=== PATIENT | female | born 1980 | race Caucasian/White ===

== ENCOUNTER → 2017-08-03 | Outpatient (CLI) | payer MEDICAID, OTHER ==
[2017-08-03 17:00] LABS: INR 1.08; PROTHROMBIN TIME 14.2 SECONDS (12.4-14.5)
[2017-08-03 19:03] LABS: PARTIAL THROMBOPLASTIN TIME 43.2 SECONDS (26.8-37.9)
[2017-08-04 12:37] LABS: ALPHA FETOPROTEIN TUMOR QUANT 1.9 NG/ML (<8.1)
[2017-08-05 09:45] LABS: HEPATITIS B SURFACE ANTIBODY NEGATIVE (POSITIVE)
[2017-08-06 00:08] LABS: ANTI-SMOOTH MUSCLE ANTIBODY 10 Units (0-19)
[2017-08-06 00:08] LABS: ANTI-MITOCHONDRIAL ANTIBODY 2.8 Units (0.0-20.0); ANTINUCLEAR ANTIBODIES DIRECT Negative (Negative); HEPATITIS A IgG TOTAL Negative (Negative); LIVER-KIDNEY MICROSOMAL ABY 0.7 Units (0.0-20.0)
== END ==
LOC: M LAB 15:47
DX: R19.7 Diarrhea, unspecified (principal)
CPT/HCPCS: 86706

== ENCOUNTER → 2017-08-21 | Day surgery (SDC) | payer MEDICAID ==
[~2017-08-21] MED LIST: LIDOCAINE 2% INJ 100 MG/5 ML SDV (FOR ANES.) As Ordered; PHENYLephrine HCL 500 MCG/5 ML (100MCG/ML) SYRINGE (J2370) As Ordered; PROPOFOL 200 MG/20 ML VIAL As Ordered; PROPOFOL 500 MG/50 ML VIAL As Ordered; fentaNYL 100 MCG/2 ML INJECTION (J3010) As Ordered
[2017-08-21] MEDS: NS 1,000 ML IV (11:30)
== END | disposition home or self-care (01) ==
LOC: M OPP 11:07
DX: K64.8 Other hemorrhoids (principal); D12.7 Benign neoplasm of rectosigmoid junction; K63.5 Polyp of colon; K92.1 Melena; R19.4 Change in bowel habit; K29.70 Gastritis, unspecified, without bleeding; R10.13 Epigastric pain; K21.9 Gastro-esophageal reflux disease without esophagitis; K44.9 Diaphragmatic hernia without obstruction or gangrene; F32.9 Major depressive disorder, single episode, unspecified; F17.210 Nicotine dependence, cigarettes, uncomplicated; Z79.82 Long term (current) use of aspirin; Z79.899 Other long term (current) drug therapy
CPT/HCPCS: 45385

== ENCOUNTER 2019-02-16 06:04 | Emergency (ER) | payer OTHER ==
[~2019-02-16] VITALS: Ht 170.2 cm; Wt 88.6 kg
[~2019-02-16 06:04] MED LIST changes: +GAS-80CH PO; +IBUP200C25 PO; -LIDOCAINE 2% INJ 100 MG/5 ML SDV (FOR ANES.) As Ordered; +MULT1TAB18 PO; +PANT40TA3 PO; -PHENYLephrine HCL 500 MCG/5 ML (100MCG/ML) SYRINGE (J2370) As Ordered; -PROPOFOL 200 MG/20 ML VIAL As Ordered; -PROPOFOL 500 MG/50 ML VIAL As Ordered; -fentaNYL 100 MCG/2 ML INJECTION (J3010) As Ordered
[2019-02-16] MEDS ORDERED: PENI1TAB17 PO (06:08)
[2019-02-16] MEDS ORDERED: AMPICILLIN SOD/SULBACTAM SOD 3 GM in D5W MINI-BAG PLUS 100 ML IV ONE (06:30)
[2019-02-16] MEDS ORDERED: NS 1,000 ML IV ONE (06:30)
[2019-02-16] MEDS ORDERED: MORPHINE 4 MG/ML 1ML VIAL/SYRINGE (J2270) IV ONE (06:30)
[2019-02-16 06:51] LABS: BASO % 0.3 % (0.0-1.0); EOS # 0.1 10^3/uL (0.0-0.5); EOS % 0.7 % (0.0-3.0); HEMATOCRIT 38.9 % (36.0-47.0); HEMOGLOBIN 13.2 g/dl (12.0-15.5); LYMPH # 1.4 10^3/uL (1.5-5.0); LYMPH % 14.5 % (24.0-44.0); MEAN CORPUSCULAR HEMOGLOBIN 30.3 pg (27.0-33.0); MEAN CORPUSCULAR HGB CONC 33.9 g/dl (32.0-36.5); MEAN CORPUSCULAR VOLUME 89.2 fl (80.0-96.0); MONO # 0.7 10^3/uL (0.0-0.8); MONO % 7.4 % (0.0-5.0); NEUTROPHILS # 7.3 10^3/uL (1.5-8.5); NEUTROPHILS % 76.8 % (36.0-66.0); PLATELET COUNT, AUTOMATED 301 10^3/uL (150-450); RED BLOOD COUNT 4.36 10^6/uL (4.00-5.40); WHITE BLOOD COUNT 9.5 10^3/uL (4.0-10.0)
[2019-02-16] MEDS ORDERED: ISOVUE-370 76% 100ML VIAL (Q9967) As Ordered ONE (07:05)
[2019-02-16 07:13] LABS: BLOOD UREA NITROGEN 6 MG/DL (7-18); CALCIUM LEVEL 8.8 MG/DL (8.5-10.1); CARBON DIOXIDE LEVEL 26 MEQ/L (21-32); CHLORIDE LEVEL 107 MEQ/L (98-107); CREATININE FOR GFR 0.48 MG/DL (0.55-1.30); GLOMERULAR FILTRATION RATE > 60.0 (>60); GLUCOSE, FASTING 100 MG/DL (70-100); POTASSIUM SERUM 4.3 MEQ/L (3.5-5.1); SODIUM LEVEL 140 MEQ/L (136-145)
[2019-02-16 07:18] LABS: HCG, SERUM QUALITATIVE NEGATIVE (NEGATIVE)
--- NOTE | 2019-02-16 07:50 | REPVR ---
PROCEDURE INFORMATION: Exam: CT Neck With Contrast Exam date and time: 02/16/2019 7:27 AM Age: 38 years old Clinical history: Mass, lump, or swelling in neck; Additional info: Right lower molar infection ? abscess TECHNIQUE: Imaging protocol: Computed tomography images of the neck with intravenous contrast. Radiation optimization: All CT scans at this facility use at least one of these dose optimization techniques: automated exposure control; mA and/or kV adjustment per patient size (includes targeted exams where dose is matched to clinical indication); or iterative reconstruction. Contrast material: ISOVUE 370; Contrast volume: 75 ml; Contrast route: IV; COMPARISON: No relevant prior studies available. FINDINGS: Nasopharynx: Unremarkable. Oropharynx: Unremarkable. No significant tonsillar enlargement. Hypopharynx: Unremarkable Larynx: Unremarkable. Normal epiglottis. Retropharyngeal space: Unremarkable. Submandibular/Parotid glands: Normal. Glands are normal in size. Thyroid: Normal. No enlarged or calcified nodules. Lymph nodes: Multiple prominent level I and 2 lymph nodes, more prominent on the right are seen measuring up to 1.5 cm. Trachea: Visualized trachea is unremarkable. Lungs: Unremarkable as visualized. Dental: There is periapical lucency at the tip of right second maxillary molar tooth. Bones/joints: Unremarkable. No acute fracture. Soft tissues: There is significant right cheek soft tissue swelling and subcutaneous edema. There is significant streak artifacts from dental fillings limiting the evaluation. IMPRESSION: 1. Periapical lucency at the tip of right second maxillary molar tooth suggestive of periodontal/pulpal disease. 2. Significant soft tissue swelling and subcutaneous edema in the right cheek overlying the right mandible and maxilla but without obvious move collection to suggest an abscess however evaluation is limited by streak artifacts from dental fillings. 3. Bilateral level I and 2 cervical adenopathy, more prominent on the right likely reactive. Followup is suggested to document resolution. Electronically signed by: Ye Helton On 02/16/2019 07:50:27 AM
[2019-02-16] MEDS ORDERED: IBUP-1022 PO (08:04)
[2019-02-16] MEDS ORDERED: AUGM875T28 PO (08:04)
[2019-02-16 08:11] VITALS: BP 139/67
== END 2019-02-16 08:23 | disposition home or self-care (01) ==
LOC: M ED 06:04
DX: K04.7 Periapical abscess without sinus (principal); L03.211 Cellulitis of face; R59.0 Localized enlarged lymph nodes
CPT/HCPCS: 70491; 80048; 84703; 85025; 87040; 96374; 96375; 99284; J2270; Q9967

== ENCOUNTER → 2021-04-05 | Outpatient (REF) ==
[~2021-04-05] MED LIST changes: +AUGM875T28 PO; +IBUP-1022 PO; +PANT40TA29 PO; -PANT40TA3 PO; +PENI1TAB17 PO
== END ==
LOC: M LABSMTC 09:20
PROVIDERS: ATTEND Pediatrics
DX: Z20.822 Contact with and (suspected) exposure to COVID-19 (principal)

== ENCOUNTER 2021-06-19 14:51 | Emergency (ER) | payer OTHER ==
[~2021-06-19] VITALS: Ht 170.2 cm; Wt 86.4 kg
[2021-06-19 14:51] VITALS: BP 169/79
[2021-06-19] MEDS ORDERED: ACET-683 PO (15:00)
[2021-06-19 19:54] LABS: BASO % 0.5 % (0.0-1.0); EOS # 0.2 10^3/uL (0.0-0.5); EOS % 2.6 % (0.0-3.0); HEMATOCRIT 38.9 % (36.0-47.0); HEMOGLOBIN 13.4 g/dl (12.0-15.5); LYMPH # 3.3 10^3/uL (1.5-5.0); LYMPH % 40.3 % (24.0-44.0); MEAN CORPUSCULAR HEMOGLOBIN 31.6 pg (27.0-33.0); MEAN CORPUSCULAR HGB CONC 34.4 g/dl (32.0-36.5); MEAN CORPUSCULAR VOLUME 91.7 fl (80.0-96.0); MONO # 0.6 10^3/uL (0.0-0.8); MONO % 7.7 % (2.0-8.0); NEUTROPHILS % 48.8 % (36.0-66.0); PLATELET COUNT, AUTOMATED 285 10^3/uL (150-450); RED BLOOD COUNT 4.24 10^6/uL (4.00-5.40); WHITE BLOOD COUNT 8.2 10^3/uL (4.0-10.0)
[2021-06-19] MEDS ORDERED: KETOROLAC 60MG 2ML VIAL IM ONE (20:00)
[2021-06-19 20:05] LABS: INR 0.96; PROTHROMBIN TIME 13.2 SECONDS (12.7-14.5)
[2021-06-19 20:06] LABS: PARTIAL THROMBOPLASTIN TIME 36.5 SECONDS (25.9-37.0)
[2021-06-19 20:12] LABS: D-DIMER QUANT < 270 ng/ml (<500)
[2021-06-19] MEDS ORDERED: CYCL7.5T32 PO (20:28)
[2021-06-19] MEDS ORDERED: CYCLOBENZAPRINE 10MG TABLET PO ONE (20:30)
== END 2021-06-19 20:41 | disposition home or self-care (01) ==
LOC: M ED 14:51
DX: M62.830 Muscle spasm of back (principal); M25.512 Pain in left shoulder; F17.200 Nicotine dependence, unspecified, uncomplicated
CPT/HCPCS: 80047; 85025; 85379; 85610; 85730; 93005; 96372; 99283; J1885